=== PATIENT | male | born 1985 | race Caucasian/White ===

== ENCOUNTER 2021-01-07 13:40 | Emergency (ER) | payer OTHER ==
[~2021-01-07] VITALS: Ht 175.3 cm; Wt 136.1 kg
[2021-01-07] MEDS ORDERED: ACYCLOVIR 800800 MG PO (14:04)
[2021-01-07] MEDS ORDERED: HYDROCODON-ACE1 EAC7 PO (14:04)
[2021-01-07 14:11] VITALS: BP 199/100
== END 2021-01-07 14:13 | disposition home or self-care (01) ==
LOC: M.ERS 13:40
DX: B02.9 Zoster without complications (principal)